=== PATIENT | male | born 2000 | race African-American/Black ===

== ENCOUNTER 2021-06-07 16:13 | Emergency (ER) | payer SELFPAY ==
[~2021-06-07] VITALS: Ht 185.4 cm; Wt 84.1 kg
[2021-06-07 16:27] VITALS: BP 102/78; TEMP 98
[2021-06-07 17:51] VITALS: PULSE 88
== END 2021-06-07 17:53 | disposition home or self-care (01) ==
LOC: COL.ER 16:13
DX: R05.9 Cough, unspecified (principal)